=== PATIENT | male | born 1995 | race African-American/Black ===

== ENCOUNTER 2022-11-29 18:08 | Emergency (ER) | payer SELFPAY ==
[~2022-11-29] VITALS: Ht 185.4 cm; Wt 117.9 kg
[2022-11-29 20:20] VITALS: BP 144/87; TEMP 97.5; O2SAT 100
[2022-11-29] MEDS ORDERED: MINERAL OIL 133 ML (PYXIS) 1 EA ENEMA RC ONE ×2 (21:00→21:13)
[2022-11-29] MEDS ORDERED: POLY17PO4 PO (21:22)
== END 2022-11-29 21:41 | disposition home or self-care (01) ==
LOC: ER 18:29
DX: K59.00 Constipation, unspecified (principal); R14.0 Abdominal distension (gaseous); Z79.899 Other long term (current) drug therapy